=== PATIENT | male | born 1955 | race Caucasian/White ===

== ENCOUNTER 2023-11-12 06:13 | Day surgery (SDC) | payer MEDICARE, OTHER ==
[~2023-11-12 06:13] MED LIST: Sodium Chloride 0.9% 10 ML Syringe FLUSH PRN; Sodium Chloride 0.9% 10 ML Syringe FLUSH SCH
[2023-11-12] MEDS: Lactated Ringers 1,000 ML IV SCH (06:30)
[2023-11-12] MEDS ORDERED: Propofol 200 MG/20 ML SDV ONE ×2 (06:34→07:11)
[2023-11-12] MEDS ORDERED: ePHEDrine 50 MG/ML SDV ONE (07:02)
[2023-11-12 07:47] VITALS: BP 99/56; PULSE 70
== END 2023-11-12 08:10 | disposition home or self-care (01) ==
LOC: JD.SDS 06:13 → MERGE 08:00 → JD.SDS 08:10
PROVIDERS: ATTEND Surgery
DX: Z12.11 Encounter for screening for malignant neoplasm of colon (principal); D12.3 Benign neoplasm of transverse colon; E78.00 Pure hypercholesterolemia, unspecified; I10 Essential (primary) hypertension; E11.9 Type 2 diabetes mellitus without complications; E03.9 Hypothyroidism, unspecified; E66.9 Obesity, unspecified; Z68.32 Body mass index [BMI] 32.0-32.9, adult; Z86.010 Personal history of colon polyps; Z79.899 Other long term (current) drug therapy; Z79.890 Hormone replacement therapy
CPT/HCPCS: 45380; 82947; 88305; J2704; J7120; 00811; 99203; J3490

== ENCOUNTER 2025-03-03 09:21 | Emergency (ER) | payer MEDICARE, OTHER ==
[2025-03-03 09:39] LABS: BASOPHILS ABSOLUTE AUTO 0.2 K/mm3 (0.0-0.2); BASOPHILS PERCENT AUTO 1.8 % (0.0-1.0); EOSINOPHILS ABSOLUTE AUTO 0.1 K/mm3 (0.0-0.4); EOSINOPHILS PERCENT AUTO 1.2 % (0.0-6.0); IMMATURE GRAN ABSOLUTE AUTO 0.43 K/mm3 (0.00-0.05); IMMATURE GRAN PERCENT AUTO 4.6 % (0.0-0.4); LYMPHOCYTES ABSOLUTE AUTO 3.3 K/mm3 (1.0-4.8); LYMPHOCYTES PERCENT AUTO 35.3 % (24.0-44.0); MEAN PLATELET VOLUME 11.5 fl (9.4-12.4); MONOCYTES ABSOLUTE AUTO 0.3 K/mm3 (0.0-0.8); MONOCYTES PERCENT AUTO 3.1 % (0.0-8.0); NEUTROPHILS ABSOLUTE AUTO 5.1 K/mm3 (1.8-7.7); NEUTROPHILS PERCENT AUTO 54.0 % (41.0-71.0); NRBC ABSOLUTE 0.05 (0.00-0.02); NRBC PERCENT 0.5 % (0.0-0.2); RED BLOOD CELL COUNT 6.22 M/mm3 (4.52-5.90); WHITE BLOOD CELL COUNT,WBC 9.38 K/mm3 (3.9-11.3)
[2025-03-03 09:42] LABS: PLATELET COUNT,PLT 82 K/mm3 (150-400)
[2025-03-03] MEDS ORDERED: Ketamine 500 mg/10 ML MDV ONE (09:45)
[2025-03-03] MEDS ORDERED: Midazolam 1 MG/ML 5 ML SDV ONE (09:47)
[2025-03-03 09:57] LABS: A/G RATIO 0.8 (1-2); ALANINE AMINOTRANSFERASE,ALT 223 U/L (16-63); BILIRUBIN TOTAL 0.7 mg/dL (0.2-1.0); BLOOD UREA NITROGEN,BUN 23 mg/dL (7-18); CARBON DIOXIDE,CO2 15 mEq/L (21-32); CHLORIDE,CL 98 mEq/L (98-107); CREATININE 1.3 mg/dL (0.7-1.3); ESTIMATED GFR 59 mL/min (>60); PROTEIN TOTAL,TP 6.8 g/dl (6.4-8.2); SODIUM,NA 136 mEq/L (136-145)
[2025-03-03 09:59] LABS: GLUCOSE RANDOM 593 mg/dL (70-99)
[2025-03-03 10:00] LABS: ASPARTATE AMNIOTRANSFERASE,AST 269 U/L (15-37); POTASSIUM,K 3.5 mEq/L (3.5-5.1)
[2025-03-03] MEDS ORDERED: Atropine 0.1 MG/ML 10 ML Syringe ONE ×3 (10:00)
[2025-03-03] MEDS ORDERED: [UNRECOGNIZED DRUG - OTHER] IV SCH (10:15)
[2025-03-03] MEDS ORDERED: EPINEPHRINE 4 MG/250 ML IV SCH (10:15)
== END 2025-03-03 11:45 | disposition expired ==
LOC: JD.ED 09:21
DX: I46.9 Cardiac arrest, cause unspecified (principal); K92.2 Gastrointestinal hemorrhage, unspecified; I10 Essential (primary) hypertension; E78.00 Pure hypercholesterolemia, unspecified; E11.9 Type 2 diabetes mellitus without complications; E03.9 Hypothyroidism, unspecified; E66.9 Obesity, unspecified; Z79.899 Other long term (current) drug therapy; Z79.890 Hormone replacement therapy
CPT/HCPCS: 36415; 36430; 51702; 80053; 85025; 86850; 86900; 86901; 86922; 92950; 96374; 96375; 99291; J0168; J0461; J2250; J2470; J3490; J7030; P9016; P9017; 99285